=== PATIENT | male | born 1965 | race Two or more races ===

== ENCOUNTER → 2021-02-11 | Outpatient (CLI) | payer OTHER ==
--- NOTE | 2021-02-11 14:03 | KCIC ---
Coronary artery calcium score dated February 11, 2021. No comparison available. Clinical Indication: Calcium screening. History of heart disease. Hypertension. Hyperlipidemia. Technical factors: High resolution, computed tomography of the heart was performed with ECG gating and suspended respira tion. No contrast material was administered. Post processing was performed on the [facility] using diastolic phase images to measure the amount of coronary vascular calcium. Scoring was pe rformed using the [place] Method. PQRS compliance Statement One or more of the following individualized dose reduction techniques were utilized for this study: 1. Automated exposure control 2. Adjustment of the mA and/or kV according to patient size 3. Use of iterative reconstruction technique Results: Thorax: No significant abnormality is identified in the lungs or mediastinum. Note that this CT exam is limit ed to the heart and adjacent structures. Coronary arteries: Left main coronary artery: 45.7 Left anterior descending coronary artery: 74.9 Left circumflex coronary artery: 5.4 Right coronary artery: 57.6 Total coronary artery calcium score: 183.6 Information is based on an analysis of the coronary arteries only. Calcium deposits do not correspond directly to the percentage of narrowing of the arteries. They do correlate directly to the amount of coronary artery plaque and to the risk of future coronary artery disease. These calcium deposits usu ally begin to form years before any symptoms develop. Early detection and modification of risk factor s, such as smoking and cholesterol intake, can slow the progress of coronary artery disease. The results should be discussed with your physician taking into account other risk factors such as ag e, gender, family history, diabetes, smoking or high cholesterol levels. Should you ever experience chest pain, difficulty breathing, discomfort radiating into your neck or a rm, or discomfort combined with lightheadedness, sweating, fainting or nausea, you should seek prompt medical attention. Moderate coronary atherosclerosis is present. Individuals in this score range typically have mild to moderate luminal irregularity at coronary angiography. There is an intermediate risk of cardiovascula r events based on this test. Conclusions: 1. Coronary atherosclerosis is present, moderate amount. 2. Intermediate risk of cardiovascular event. Recommendations: 1. Further evaluation and prevention strategies should be based on global assessment of cardiovascula r risk factors in addition to the results of this test. 2. Aggressive reduction of modifiable cardiovascular risk factors should be considered. Additional supporting information concerning the findings and recommendation contained within this report can be found in the consensus statements on coronary vascular calcium published by the [place] [employer] and [place] [employer] 5 Conference (Circulation 1996 ; 94: 6723-2950; J Am Haritha Cardiol 2000; 36: 326-340 and Circulation 2000; 101: 111-116). Electronically signed by: Alo Rosales MD (02/11/2021 2:01 PM) [id number]
== END ==
LOC: KCIC CT 12:50
PROVIDERS: ATTEND Family Medicine
DX: Z13.6 Encounter for screening for cardiovascular disorders (principal); I11.9 Hypertensive heart disease without heart failure; E78.5 Hyperlipidemia, unspecified
CPT/HCPCS: 75571